=== PATIENT | male | born 1995 | race Caucasian/White ===

== ENCOUNTER 2018-11-08 22:29 | Emergency (ER) | payer OTHER ==
[~2018-11-08] VITALS: Ht 190.5 cm; Wt 117.9 kg
[2018-11-08 23:27] VITALS: BP 135/66; Ht 190.5 cm; Wt 117.9 kg
== END 2018-11-09 00:56 | disposition home or self-care (01) ==
LOC: ED 22:29
DX: S62.305A Unspecified fracture of fourth metacarpal bone, left hand, initial encounter for closed fracture (principal); S62.617A Displaced fracture of proximal phalanx of left little finger, initial encounter for closed fracture; W01.0XXA Fall on same level from slipping, tripping and stumbling without subsequent striking against object, initial encounter; Y93.I9 Activity, other involving external motion; Y92.413 State road as the place of occurrence of the external cause; Y99.8 Other external cause status
CPT/HCPCS: J1885; Q0092